=== PATIENT | female | born 1980 | race African-American/Black ===

== ENCOUNTER 2016-10-06 17:43 | Emergency (ER) | payer OTHER ==
[~2016-10-06] VITALS: Ht 167.6 cm; Wt 62.6 kg
[~2016-10-06 17:43] MED LIST: 'PARAFON FORTE500 M1 PO; ANAPROX DS550 MG PO; AUGMENTIN 875875 MG PO; CLINDAMYCIN HC300 MG PO; DICLOFENAC POTA50 MG PO; FERROUS SULFAT325 MG PO; FLEXERIL5 MG PO; HYDR12.5C PO; HYDROCODONE BIT1 T11 PO; IRON TABLETS325 MG PO; IRON325 M1 PO; K-Dur 20MEQ20 MEQ PO; LISINOPRIL5 MG PO; LOPRESSOR50 MG PO; METOPROLOL100 MG PO; MOTRIN800 MG PO; NAPROSYN500 MG PO; OVRAL-21 50 MCG1 TAB PO; PERCOCET 325 MG1 TA2 PO; VICODIN 5/500 505 MG PO
[2016-10-06 17:48] VITALS: BP 110/70
[2016-10-06 18:12] LABS: BASO % 0.4 % (0.0-1.0); EOS # 0.1 10*3/uL (0.0-0.4); EOS % 1.6 % (1.0-4.0); HEMATOCRIT 23.9 % (37.0-47.0); HEMOGLOBIN 7.1 g/dl (12.0-16.0); LYMPH # 1.2 10*3/uL (1.3-4.4); LYMPH % 17.8 % (27.0-41.0); MEAN CELL VOLUME 67.1 fl (81.0-99.0); MEAN CORPUSCULAR HGB 19.9 pg (27.0-31.0); MEAN CORPUSCULAR HGB CONC 29.7 g/dl (33.0-37.0); MEAN PLATELET VOLUME 10.6 fl (9.6-12.3); MONO # 0.6 10*3/uL (0.1-1.0); MONO % 8.3 % (3.0-9.0); NEUT # 4.9 10*3/uL (2.3-7.9); NEUT % 71.6 % (47.0-73.0); PLATELET COUNT AUTOMATED 308 10*3/uL (130-400); RED BLOOD COUNT 3.56 10*6/uL (4.10-5.10); RED CELL DISTRI WIDTH 22.4 % (0-14.5); WHITE BLOOD COUNT 6.9 10*3/uL (4.8-10.8)
[2016-10-06 18:30] LABS: BUN 20 mg/dl (7-24); CARBON DIOXIDE 25 mmol/L (21-32); CHLORIDE 105 mmol/L (98-107); EST GLOM FILT AFRICAN AMERICAN > 60 ml/min; GLUCOSE 120 mg/dL (65-99); POTASSIUM 3.5 mmol/L (3.5-5.1); SODIUM 140 mmol/L (136-145)
== END 2016-10-06 19:02 | disposition home or self-care (01) ==
LOC: ED 17:43
PROVIDERS: Emergency Medicine
DX: R55 Syncope and collapse (principal); D64.9 Anemia, unspecified; I10 Essential (primary) hypertension; Z88.6 Allergy status to analgesic agent

== ENCOUNTER 2017-06-09 22:16 | Emergency (ER) | payer OTHER ==
[~2017-06-09] VITALS: Ht 167.6 cm; Wt 65.8 kg
[2017-06-09 22:18] VITALS: BP 138/89
[2017-06-09 22:52] LABS: BASO % 0.4 % (0.0-1.0); EOS # 0.2 10*3/uL (0.0-0.4); HEMATOCRIT 34.1 % (37.0-47.0); HEMOGLOBIN 11.6 g/dl (12.0-16.0); MEAN CELL VOLUME 81.6 fl (81.0-99.0); MEAN CORPUSCULAR HGB 27.8 pg (27.0-31.0); MEAN PLATELET VOLUME 11.4 fl (9.6-12.3); MONO # 0.6 10*3/uL (0.1-1.0); MONO % 7.1 % (3.0-9.0); NEUT # 5.2 10*3/uL (2.3-7.9); NEUT % 64.1 % (47.0-73.0); PLATELET COUNT AUTOMATED 154 10*3/uL (130-400); RED BLOOD COUNT 4.18 10*6/uL (4.10-5.10); RED CELL DISTRI WIDTH 16.8 % (0-14.5); WHITE BLOOD COUNT 8.1 10*3/uL (4.8-10.8)
[2017-06-09 23:08] LABS: ALBUMIN 3.9 gm/dl (3.1-4.5); ALKALINE PHOSPHATASE 55 U/L (45-117); BUN 16 mg/dl (7-24); CHLORIDE 105 mmol/L (98-107); CREATININE 0.92 mg/dL (0.55-1.02); POTASSIUM 3.7 mmol/L (3.5-5.1); SGOT/AST 14 IU/L (3-35); SGPT/ALT 17 U/L (12-78); SODIUM 139 mmol/L (136-145); TOTAL PROTEIN 8.2 gm/dL (6.4-8.2)
[2017-06-10] MEDS ORDERED: ZITHROMAX250 MG PO (00:07)
[2017-06-10] MEDS ORDERED: PROTONIX40 MG PO (00:07)
== END 2017-06-10 00:34 | disposition home or self-care (01) ==
LOC: ED 22:16
PROVIDERS: Nurse Practitioner Family
DX: K21.9 Gastro-esophageal reflux disease without esophagitis (principal); R09.1 Pleurisy; R10.13 Epigastric pain; F17.210 Nicotine dependence, cigarettes, uncomplicated; I10 Essential (primary) hypertension; Z98.51 Tubal ligation status; Z98.890 Other specified postprocedural states; Z79.899 Other long term (current) drug therapy; Z88.6 Allergy status to analgesic agent; Z88.5 Allergy status to narcotic agent

== ENCOUNTER 2017-10-11 08:16 | Emergency (ER) | payer OTHER ==
[~2017-10-11] VITALS: Ht 167.6 cm; Wt 68.5 kg
[~2017-10-11 08:16] MED LIST changes: +PROTONIX40 MG PO; +ZITHROMAX250 MG PO
[2017-10-11] MEDS ORDERED: AMOXICILLIN500 M2 PO (10:41)
[2017-10-11 10:44] VITALS: BP 130/70
== END 2017-10-11 10:45 | disposition home or self-care (01) ==
LOC: ED 08:16
DX: J40 Bronchitis, not specified as acute or chronic (principal); J01.90 Acute sinusitis, unspecified; K21.9 Gastro-esophageal reflux disease without esophagitis; I10 Essential (primary) hypertension; Z79.899 Other long term (current) drug therapy; Z88.6 Allergy status to analgesic agent

== ENCOUNTER 2018-11-03 00:28 | Emergency (ER) | payer OTHER ==
[~2018-11-03 00:28] MED LIST changes: +AMOXICILLIN500 M2 PO
[2018-11-03 00:30] VITALS: BP 144/105
[2018-11-03] MEDS ORDERED: MOTRIN 600 MG E4 TAB PO (02:20)
== END 2018-11-03 02:33 | disposition home or self-care (01) ==
LOC: ED 00:28
DX: M77.9 Enthesopathy, unspecified (principal); M25.531 Pain in right wrist; K21.9 Gastro-esophageal reflux disease without esophagitis; I10 Essential (primary) hypertension; Z79.899 Other long term (current) drug therapy; Z88.6 Allergy status to analgesic agent; X58.XXXA Exposure to other specified factors, initial encounter; Y93.89 Activity, other specified; Y92.89 Other specified places as the place of occurrence of the external cause; Y99.8 Other external cause status

== ENCOUNTER 2019-11-14 23:32 | Emergency (ER) | payer OTHER ==
[~2019-11-14] VITALS: Ht 167.6 cm; Wt 74.4 kg
[~2019-11-14 23:32] MED LIST changes: +MOTRIN 600 MG E4 TAB PO
[2019-11-14 23:38] VITALS: BP 153/92
[2019-11-15 00:02] LABS: BILIRUBIN NEGATIVE (NEGATIVE); BLOOD 3+ (NEGATIVE); CLARITY CLEAR (CLEAR); COLOR YELLOW (YELLOW); GLUCOSE NEGATIVE (NEGATIVE); KETONE NEGATIVE (NEGATIVE)
[2019-11-15 00:03] LABS: LEUKO ESTERASE NEGATIVE (NEGATIVE); NITRITE NEGATIVE (NEGATIVE); UROBILINOGEN 0.2 E.U./dl (0.2-1.0)
[2019-11-15 00:06] LABS: RBC 16-20 rbc/hpf (0-2); WBC 0-2 wbc/hpf (0-5)
[2019-11-15 00:07] LABS: BACTERIA TRACE; HYALINE CAST 0-2
[2019-11-15 00:28] LABS: BASO % 0.3 % (0.0-1.0); EOS # 0.3 10*3/uL (0.0-0.4); EOS % 3.3 % (1.0-4.0); HEMATOCRIT 36.3 % (37.0-47.0); HEMOGLOBIN 12.4 g/dl (12.0-16.0); LYMPH % 30.8 % (27.0-41.0); MEAN CORPUSCULAR HGB 30.4 pg (27.0-31.0); MEAN CORPUSCULAR HGB CONC 34.2 g/dl (33.0-37.0); MEAN PLATELET VOLUME 11.8 fl (9.6-12.3); MONO # 0.7 10*3/uL (0.1-1.0); MONO % 6.9 % (3.0-9.0); NEUT # 5.6 10*3/uL (2.3-7.9); NEUT % 58.5 % (47.0-73.0); PLATELET COUNT AUTOMATED 195 10*3/uL (130-400); RED BLOOD COUNT 4.08 10*6/uL (4.10-5.10); WHITE BLOOD COUNT 9.7 10*3/uL (4.8-10.8)
[2019-11-15] MEDS ORDERED: MACROBID100 M1 PO (00:54)
[2019-11-15] MEDS ORDERED: DIFLUCAN150 MG PO (00:54)
== END 2019-11-15 01:05 | disposition home or self-care (01) ==
LOC: ED 23:32
PROVIDERS: Emergency Medicine Emergency Medical Services
DX: R31.29 Other microscopic hematuria (principal); R30.0 Dysuria; N93.9 Abnormal uterine and vaginal bleeding, unspecified; I10 Essential (primary) hypertension; K21.9 Gastro-esophageal reflux disease without esophagitis; Z88.6 Allergy status to analgesic agent; Z79.899 Other long term (current) drug therapy; Z79.2 Long term (current) use of antibiotics

== ENCOUNTER → 2020-09-02 | Outpatient (CLI) | payer OTHER ==
[~2020-09-02] MED LIST changes: +DIFLUCAN150 MG PO; +MACROBID100 M1 PO
[2020-09-02 13:57] LABS: BASO % 0.4 % (0.0-1.0); EOS # 0.2 10*3/uL (0.0-0.4); EOS % 2.4 % (1.0-4.0); HEMATOCRIT 35.8 % (37.0-47.0); LYMPH # 2.2 10*3/uL (1.3-4.4); LYMPH % 26.4 % (27.0-41.0); MEAN CORPUSCULAR HGB 29.7 pg (27.0-31.0); MEAN CORPUSCULAR HGB CONC 33.8 g/dl (33.0-37.0); MEAN PLATELET VOLUME 12.4 fl (9.6-12.3); MONO # 0.7 10*3/uL (0.1-1.0); MONO % 7.7 % (3.0-9.0); NEUT # 5.3 10*3/uL (2.3-7.9); NEUT % 62.9 % (47.0-73.0); PLATELET COUNT AUTOMATED 165 10*3/uL (130-400); RED BLOOD COUNT 4.07 10*6/uL (4.10-5.10); RED CELL DISTRI WIDTH 12.7 % (0-14.5); WHITE BLOOD COUNT 8.4 10*3/uL (4.8-10.8)
[2020-09-02 14:10] LABS: FREE T4 0.94 ng/dl (0.76-1.46)
[2020-09-02 14:15] LABS: THYROID STIM HORMONE (HS) 2.01 uIU/ml (0.358-4.75)
== END | disposition home or self-care (01) ==
LOC: US 13:00 → LAB 13:03
PROVIDERS: ATTEND Internal Medicine
DX: D25.9 Leiomyoma of uterus, unspecified (principal)

== ENCOUNTER 2020-12-30 15:08 | Emergency (ER) | payer OTHER ==
[~2020-12-30] VITALS: Ht 167.6 cm; Wt 80.7 kg
[2020-12-30 15:12] VITALS: BP 145/87
[2020-12-30 15:31] LABS: BILIRUBIN Negative (Negative); BLOOD 3+ (Negative); CLARITY Turbid (Clear); COLOR Yellow (Yellow); GLUCOSE Negative (Negative); KETONE Negative (Negative); LEUKO ESTERASE 3+ (Negative); NITRITE Negative (Negative); SPECIFIC GRAVITY 1.015 (1.001-1.030); UROBILINOGEN 0.2 E.U./dl (0.0-1.0)
[2020-12-30 15:38] LABS: BACTERIA 2+; EPITHELIAL CELLS TNTC; MUCOUS TRACE; WBC TNTC wbc/hpf (0-5)
[2020-12-30] MEDS ORDERED: CIPRO500 MG PO (15:48)
== END 2020-12-30 16:10 | disposition home or self-care (01) ==
LOC: ED 15:08
PROVIDERS: Family Medicine
DX: N39.0 Urinary tract infection, site not specified (principal); I10 Essential (primary) hypertension; Z88.6 Allergy status to analgesic agent; Z79.899 Other long term (current) drug therapy; Z98.51 Tubal ligation status; Z98.890 Other specified postprocedural states

== ENCOUNTER → 2021-04-11 | Outpatient (CLI) | payer OTHER ==
[~2021-04-11] MED LIST changes: +CIPRO500 MG PO
== END | disposition home or self-care (01) ==
LOC: MAMMO 09:42
PROVIDERS: ATTEND Internal Medicine
DX: Z12.31 Encounter for screening mammogram for malignant neoplasm of breast (principal)

== ENCOUNTER → 2021-04-19 | Outpatient (CLI) | payer OTHER | END | disposition home or self-care (01) | LOC: US 13:00 | PROVIDERS: ATTEND Internal Medicine | DX: N60.01 Solitary cyst of right breast (principal); N60.02 Solitary cyst of left breast ==

== ENCOUNTER 2021-06-11 13:50 | Emergency (ER) | payer OTHER ==
[~2021-06-11] VITALS: Ht 167.6 cm; Wt 77.1 kg
[2021-06-11 14:08] VITALS: BP 170/111
[2021-06-11] MEDS ORDERED: ZOFRAN4 MG PO (17:01)
== END 2021-06-11 17:25 | disposition home or self-care (01) ==
LOC: ED 13:50
DX: R11.2 Nausea with vomiting, unspecified (principal); R51.9 Headache, unspecified; F17.200 Nicotine dependence, unspecified, uncomplicated; Z88.8 Allergy status to other drugs, medicaments and biological substances; Z79.899 Other long term (current) drug therapy

== ENCOUNTER 2021-08-01 20:43 | Emergency (ER) | payer OTHER ==
[~2021-08-01] VITALS: Ht 167.6 cm; Wt 72.6 kg
[~2021-08-01 20:43] MED LIST changes: +ZOFRAN4 MG PO
[2021-08-01 22:54] VITALS: BP 142/88
== END 2021-08-01 23:30 | disposition home or self-care (01) ==
LOC: ED 20:43
DX: U07.1 COVID-19 (principal); Z88.6 Allergy status to analgesic agent; Z79.899 Other long term (current) drug therapy

== ENCOUNTER 2021-08-05 11:40 | Emergency (ER) | payer OTHER ==
[~2021-08-05] VITALS: Ht 167.6 cm; Wt 73.5 kg
[2021-08-05] MEDS ORDERED: HYDROCHLOROTH12.5 M3 PO (12:08)
[2021-08-05 14:00] VITALS: BP 143/90
[2021-08-05] MEDS ORDERED: PREDNISONE20 M1 PO (15:21)
[2021-08-05] MEDS ORDERED: PROVENTIL HFA6.7 GM INH (15:21)
== END 2021-08-05 15:21 | disposition home or self-care (01) ==
LOC: ED 11:40
DX: U07.1 COVID-19 (principal); Z88.8 Allergy status to other drugs, medicaments and biological substances; Z79.899 Other long term (current) drug therapy

== ENCOUNTER 2021-09-21 17:43 | Emergency (ER) | payer OTHER ==
[~2021-09-21] VITALS: Ht 167.6 cm; Wt 72.6 kg
[~2021-09-21 17:43] MED LIST changes: +HYDROCHLOROTH12.5 M3 PO; +PREDNISONE20 M1 PO; +PROVENTIL HFA6.7 GM INH
[2021-09-21 18:01] VITALS: BP 141/83
[2021-09-21] MEDS ORDERED: IBUPROFEN600 MG PO ×2 (18:57→20:03)
[2021-09-21] MEDS ORDERED: METHOCARBAMOL500 M1 PO ×2 (18:57→20:03)
== END 2021-09-21 20:23 | disposition home or self-care (01) ==
LOC: ED 17:43
DX: S29.011A Strain of muscle and tendon of front wall of thorax, initial encounter (principal); X50.1XXA Overexertion from prolonged static or awkward postures, initial encounter; Y93.89 Activity, other specified; Y92.89 Other specified places as the place of occurrence of the external cause; Y99.8 Other external cause status

== ENCOUNTER 2021-09-23 10:49 | Emergency (ER) | payer OTHER ==
[~2021-09-23] VITALS: Wt 72.6 kg
[~2021-09-23 10:49] MED LIST changes: +IBUPROFEN600 MG PO; +METHOCARBAMOL500 M1 PO
[2021-09-23 11:02] VITALS: BP 153/90
== END 2021-09-23 12:27 | disposition home or self-care (01) ==
LOC: ED 10:49
DX: M54.50 Low back pain, unspecified (principal); M54.6 Pain in thoracic spine

== ENCOUNTER → 2023-05-28 | Outpatient (CLI) | payer OTHER | END | disposition home or self-care (01) | LOC: MAMMO 12:39 | PROVIDERS: ATTEND Internal Medicine Nephrology | DX: Z12.31 Encounter for screening mammogram for malignant neoplasm of breast (principal) ==

== ENCOUNTER 2024-04-25 17:25 | Emergency (ER) | payer OTHER ==
[~2024-04-25] VITALS: Ht 167.6 cm; Wt 68.0 kg
[2024-04-25 17:38] VITALS: BP 172/99
[2024-04-25] MEDS ORDERED: ERYTHROMYCIN OPH1 GM OPH (18:50)
[2024-04-25] MEDS ORDERED: ERYTHROMYCIN 1 GM TUBE OPH ONE (18:55)
== END 2024-04-25 19:03 | disposition home or self-care (01) ==
LOC: ED 17:25
DX: H10.9 Unspecified conjunctivitis (principal); D64.9 Anemia, unspecified; K21.9 Gastro-esophageal reflux disease without esophagitis; I10 Essential (primary) hypertension; Z88.8 Allergy status to other drugs, medicaments and biological substances; Z98.890 Other specified postprocedural states; Z98.51 Tubal ligation status; Z87.891 Personal history of nicotine dependence

== ENCOUNTER 2025-01-05 14:21 | Emergency (ER) | payer OTHER ==
[~2025-01-05] VITALS: Ht 167.6 cm; Wt 68.0 kg
[~2025-01-05 14:21] MED LIST changes: +ERYTHROMYCIN OPH1 GM OPH
[2025-01-05 14:29] VITALS: BP 165/92
[2025-01-05] MEDS ORDERED: SODIUM CHLORIDE 0.9% 1,000 ML IV ONE (15:10)
[2025-01-05] MEDS ORDERED: Ondansetron Hydrochloride 4 MG/2 ML VIAL IV ONE (15:15)
[2025-01-05 15:28] LABS: BASO % 0.2 % (0.0-1.0); EOS % 0.2 % (1.0-4.0); HEMATOCRIT 38.7 % (37.0-47.0); MEAN CELL VOLUME 85.2 fl (81.0-99.0); MEAN CORPUSCULAR HGB 30.6 pg (27.0-31.0); MEAN CORPUSCULAR HGB CONC 35.9 g/dl (33.0-37.0); MEAN PLATELET VOLUME 12.1 fl (9.6-12.3); MONO # 0.5 10*3/uL (0.1-1.0); MONO % 12.6 % (3.0-9.0); NEUT # 2.4 10*3/uL (2.3-7.9); NEUT % 58.4 % (47.0-73.0); PLATELET COUNT AUTOMATED 138 10*3/uL (130-400); RED BLOOD COUNT 4.54 10*6/uL (4.10-5.10); RED CELL DISTRI WIDTH 12.5 % (0-14.5); WHITE BLOOD COUNT 4.2 10*3/uL (4.8-10.8)
[2025-01-05 15:54] LABS: ALKALINE PHOSPHATASE 46 U/L (46-116); BUN 14 mg/dl (9-23); CHLORIDE 107 mmol/L (98-107); LIPASE 31 U/L (12-53); POTASSIUM 3.2 mmol/L (3.4-5.1); SGPT/ALT 8 U/L (5-49); TOTAL PROTEIN 7.7 gm/dL (6.0-8.0)
[2025-01-05] MEDS ORDERED: POTASSIUM CHLORIDE 20 MEQ TAB PO ONE (16:10)
[2025-01-05] MEDS ORDERED: Ondansetron4 MG PO (17:02)
== END 2025-01-05 17:22 | disposition home or self-care (01) ==
LOC: ED 14:21
PROVIDERS: Nurse Practitioner Family
DX: B34.9 Viral infection, unspecified (principal); Z20.822 Contact with and (suspected) exposure to COVID-19; E87.6 Hypokalemia; I10 Essential (primary) hypertension; K21.9 Gastro-esophageal reflux disease without esophagitis; F17.200 Nicotine dependence, unspecified, uncomplicated; Z88.6 Allergy status to analgesic agent; Z79.899 Other long term (current) drug therapy; Z98.890 Other specified postprocedural states

== ENCOUNTER → 2025-06-11 | Outpatient (CLI) | payer OTHER ==
[~2025-06-11] MED LIST changes: +Ondansetron4 MG PO
== END | disposition home or self-care (01) ==
LOC: MAMMO 00:40
PROVIDERS: ATTEND Internal Medicine
DX: Z12.31 Encounter for screening mammogram for malignant neoplasm of breast (principal); N63.25 Unspecified lump in the left breast, overlapping quadrants; R92.323 Mammographic fibroglandular density, bilateral breasts